=== PATIENT | female | born 1950 | race Caucasian/White ===

== ENCOUNTER 2019-12-01 13:47 | Outpatient (REF) | payer MEDICARE, SELFPAY ==
[2019-12-01 17:18] LABS: TSH reflex Free T4 0.54 mIU/mL (0.32-4.0)
== END 2019-12-01 13:48 | disposition home or self-care (01) ==
LOC: HO.HMGCLDS 13:47
PROVIDERS: PCP Internal Medicine; Visit Provider Internal Medicine
DX: R63.4 Abnormal weight loss (principal); Z00.00 Encounter for general adult medical examination without abnormal findings
CPT/HCPCS: 84443

== ENCOUNTER 2020-01-11 11:56 | Emergency (ER) | payer MEDICARE, SELFPAY ==
[2020-01-11 12:03] VITALS: BP 145/78; PULSE 89; RESP 18; TEMP 36.7; O2SAT 97; BMI 36.3
--- NOTE | 2020-01-11 12:42 | ED_ITS ---
HPI - Weakness General Chief complaint: Weakness Stated complaint: n/v/d weakness Time Seen by Provider: 01/11/20 12:42 Source: patient Mode of arrival: ambulatory Limitations: no limitations History of Present Illness HPI Narrative: this is a 69-year-old female who reports aside from slightly elevated cholesterol level she has no significant past medical history and takes daily aspirin and statin for her cholesterol she presents with complaint of a generalized feeling of weakness, a decrease appetite, chills and body ache for the past 4-5 days. Additionally she reports to me that day before Thanksgiving her room a and herself for tested for COVID-19 her room a test positive and she tested negative as her roommate has been doing fine but she herself developed fevers, chills and rhinorrhea on Wednesday and lasted a day or so the fever improved however she has overall been feeling run down. States she has no pain but has just overall generalized weakness secondary to decreased intake. She denies any shortness of breath. No cough. MD Complaint: generalized weakness Onset (ago): day(s) Location: generalized Migration: none Severity: moderate Context: recent illness Associated symptoms: fever/chills and loss of appetite Related Data Home Medications Medication Instructions Recorded Confirmed aspirin 81 mg tablet,delayed 81 mg PO DAILY 12/01/19 12/01/19 release rosuvastatin 10 mg tablet 10 mg PO DAILY 12/01/19 12/01/19 Previous Rx's Medication Instructions Recorded doxycycline monohydrate 100 mg PO BID 7 Days #14 cap 01/11/20 ondansetron HCl [Zofran] 4 mg PO Q8H PRN #10 tab 01/11/20 Allergies Allergy/AdvReac Type Severity Reaction Status Date / Time cholecalciferol (vitamin D3) AdvReac Unknown body aches Verified 05/26/19 00:00 [Vitamin D3] Review of Systems Review of Systems: Constitutional: No Weight loss, No Fever, + Chills, No Night Sweats, + Fatigue ENT/Mouth: No Hearing loss, No Ear Pain, + Nasal Congestion, No Sinus Pain, No Hoarseness, No sore throat, + Rhinorrhea, No Swallowing Difficulty Eyes: No Eye Pain, No Swelling, No Redness, No Foreign Body, No Discharge, No Vision Changes Cardiovascular: No Chest Pain, No SOB, No Dyspnea on Exertion, No Orthopnea, No Edema, No Palpitations Respiratory: No Cough, No Sputum, No Wheezing, No Smoke Exposure, No Dyspnea Gastrointestinal: + Nausea, No Vomiting, No Diarrhea, No Constipation, No abdominal Pain, No Hematochezia, No Melena Genitourinary: No Dysuria, No Urinary Frequency, No Hematuria, No Urinary Incontinence, No Urgency, No Flank Pain, No Urinary Flow Changes, No Hesitancy Musculoskeletal: No joint pain, No Myalgias, No Joint Swelling Skin: No Skin Lesions, No rash Neuro: No Numbness, No Paresthesias, No Loss of Consciousness, No Dizziness, No Headache Psych: No Anxiety/Panic, No Depression, No SI/HI/AH/VH, No Social Issues Heme/Lymph: No Bruising, No Bleeding,No Lymphadenopathy Endocrine: No Polyuria, No Polydipsia, No Temperature Intolerance Yes all other systems are reviewed and are negative Neurologic: Reports Abnormal speech present [facility] Past Medical History Medical History (Updated 01/11/20 @ 19:02 by Dewey Restrepo NP) Annual physical exam Hyperlipidemia Mammogram normal Weight loss Surgical History (Updated 12/01/19 @ 09:12 by Zandra Charles CMA) H/O colonoscopy No pertinent past surgical history Family History Family History (Updated 11/29/19 @ 09:33 by Yaa Tariq Stacey, JASSON) Father Unknown family medical history Social History Social History (Updated 12/01/19 @ 13:08 by Zandra Charles CMA) Alcohol intake: never Smoking Status: Never smoker Smoked in Last 30 Days: No Use of substances other than those prescribed or required for medical reasons: No Advance Directives: No Advance Directives Information Provided: No Physical Exam Vital Signs: Vital Signs: Last Vital Signs Temp 97.6 F 01/11/20 16:00 Pulse 89 01/11/20 16:00 Resp 18 01/11/20 16:00 BP 162/76 H 01/11/20 16:00 Pulse Ox 97 01/11/20 16:00 Body Mass Index 36.3 reviewed Const: Other: Found patient lying supine in bed attached to monitor worker resting comfortably. Dry appearing with dry lips General: cooperative, tired appearing and well groomed; No acute distress Orientation/consciousness: patient oriented x3 HENMT: Head: Yes normal to inspection Ears: hearing grossly normal bilaterally Eyes: General: appearance normal, both eyes and all related structures Visual Lynn: normal visual lynn by confrontation Neck: Neck: Yes normal visual inspection, No positive Brudzinski's sign, No positive Kernig's sign and No tender Thyroid: Thyroid normal Chest: Chest palpation & inspection: normal inspection of the chest Resp: Effort & Inspection: normal respiratory effort Auscultation: clear to auscultation bilaterally Cardio: Jugular venous distension: no JVD Rate: regular rate Heart sounds: S1 normal heart sound present and S2 normal heart sound present GI: Inspection: Yes normal to inspection Palpation (GI): Soft to palpation, not firm, nontender and no guarding Percussion: Yes normal to percussion Auscultation: normal bowel sounds : General: Yes no CVA tenderness Back/Spine/Pelvis: Back: no CVA tenderness Skin: Other: slight skin tenting. General skin exam: no rashes or lesions noted Neuro: General: patient oriented x3 Cranial nerves: Yes CN's II-XII intact bilaterally Speech: Abnormal speech present Gait exam (Neuro): Normal gait present Motor exam (neuro): 5/5 motor strength present throughout Sensory Exam: Normal double simultaneous stimulation for sensation Extrem: General: Yes normal to inspection NIH Stroke Scale Internal: Initial- Upon Arrival Level of Consciousness: Alert Level of Consciousness Questions: Answers both questions correctly Level of Consciousness Commands: Performs both tasks correctly Visual: No visual loss Facial Palsy: Normal Motor Arm (Right): No drift Motor Arm (Left): No drift Motor Leg (Right): No drift Motor Leg (Left): No drift Limb Ataxia: Absent Sensory: Normal Best Language: No aphasia Dysarthia: Normal Extinction and Inattention: No abnormality Course Course Course Narrative: 1417 Labs with CBC without leukocytosis, chemistries show stable electrolytes, renal function intact. Lactic acid negative. Slight elevation in AST/ALT and alk-phos without previous comparison available. Troponin 10.0. chest x-ray bilateral patchy all regions of disease And she is COVID-19 positive likely viral source given her exposure. Reevaluation(s) Reevaluation #1: lab shows no leukocytosis. Chemistry shows slightly elevated AST / ALT otherwise renal function stable. Urine noninfected. Slightly elevated D-dimer CTA of the chest negative for PE as well as abdominal CT done rule out acute infectious versus metastatic disease was also negative. She has been stable here. Afebrile, non tachy or hypoxic. Out of bed ambulatory steady gait. COVID-19 positive will discharge home with clear returns follow-up instructions. She feels comfortable plan will do a bedolla was it with primary care doctor via [employer]. MDM - Weakness MDM Narrative Medical decision making narrative: In review 69-year-old female with history of hypercholesteremia presenting with constellation of symptoms including generalized weakness, rhinorrhea, body aches/myalgias with fever 4 days ago and decreased p.o. intake with exposure to her roommate who tested positive for COVID. On exam she is dry appearing but no signs or symptom of systemic infections on vitals. No complaint of pain. she is not hypoxic or in any distress. We will go ahead and treat her with gradual fluids check labs including COVID certification labs and respiratory panel, chest x-ray. Given the weight loss I did discuss with her getting CT scan of the abdomen rule out acute pathology. Medical Records Attestation: I reviewed the patient's medical records. Medical records narrative: Medical record reviewed she had a visit on 12/01/[address] with her primary care [address]. Stanton this was for a annual physical she did report some 21 lb weight loss over the past several months plan was to increase her caloric/protein intake and to follow up she had labs ordered at that time including thyroid. Lab Data Attestation: I reviewed the patient's lab results. Result diagrams: 01/11/20 13:11 01/11/20 13:11 Labs: Lab Results 01/11/20 01/11/20 01/11/20 Range/Units 13:10 13:11 13:11 WBC 5.6 (4.8-10.8) X10*3/uL RBC 4.76 (4.20-5.50) X10*6/uL Hgb 14.8 (12.0-16.0) g/dl Hct 43.2 (37-47) % MCV 90.8 (80-98) fL MCH 31.1 (27.0-33.0) pg MCHC 34.3 (31.0-35.0) g/dl RDW 12.3 (11.0-16.0) % Plt Count 162 (160-400) X10*3/uL MPV 10.9 (9.4-12.3) fL Immature Gran % (Auto) 0.4 (0.0-0.4) % Neut % (Auto) 82.2 H (45-73) % Lymph % (Auto) 9.5 L (20-40) % [place] % (Auto) 7.7 (2-11) % Eos % (Auto) 0.0 (0-4) % Baso % (Auto) 0.2 (0-2) % Lymph # (Auto) 0.5 L (1.2-4.9) X10*3/uL [place] # (Auto) 0.4 (0.1-1.2) X10*3/uL Eos # (Auto) 0.0 (0.0-0.4) X10*3/uL Baso # (Auto) 0.0 (0.0-0.2) X10*3/uL Abs Immat Gran (auto) 0.02 (0.00-0.03) X10*3/uL Absolute Neuts (auto) 4.6 (2.0-8.3) X10*3/uL Absolute Nucleated RBC 0.000 (0.0-0.012) X10*3/uL Nucleated RBC % (auto) 0.0 (0.0-0.2) /100WBC PT 13.6 H (10.8-13.0) SEC INR 1.1 (0.9-1.1) APTT 31.3 (24.1-38.0) SEC D-Dimer 432 NG/ML Sodium (135-145) mmol/L Potassium (3.3-5.1) mmol/l Chloride (96-108) mmol/L Carbon Dioxide (22-29) mmol/L Anion Gap (12-20) BUN (9-16) mg/dL Creatinine (0.5-1.4) mg/dL Estim Creat Clear Calc Estimated GFR Random Glucose (60-115) mg/dL Lactic Acid 1.3 (0.5-2.0) mmol/L Calcium (8.4-10.2) mg/dL Magnesium (1.6-2.6) mg/dL Total Bilirubin (0.0-1.0) mg/dL AST (5-31) U/L ALT (0-31) U/L Alkaline Phosphatase (39-117) U/L Troponin I High Sens (<3.5-17.0) ng/L Total Protein (6.5-8.0) g/dL Albumin (3.5-5.0) g/dL Urine Color Urine Appearance Urine pH (5.0-8.0) Ur Specific [place] (1.005-1.025) Urine Protein (NEG-TRACE) MG/DL Urine Glucose (UA) (NEG) MG/DL Urine Ketones (NEG) MG/DL Urine Blood (NEG) Urine Nitrite (NEG) Ur Leukocyte Esterase (NEG) Urine RBC (0) /HPF Urine WBC (0-4) /HPF Ur Squamous Epith Cells /LPF Urine Bacteria /LPF Urine Mucus /LPF Coronavirus (PCR) (Negative) Influenza Type A (PCR) (Negative) Influenza Type B (PCR) (Negative) RSV RNA Qual (PCR) (Negative) 01/11/20 01/11/20 01/11/20 Range/Units 13:11 13:11 13:24 WBC (4.8-10.8) X10*3/uL RBC (4.20-5.50) X10*6/uL Hgb (12.0-16.0) g/dl Hct (37-47) % MCV (80-98) fL MCH (27.0-33.0) pg MCHC (31.0-35.0) g/dl RDW (11.0-16.0) % Plt Count (160-400) X10*3/uL MPV (9.4-12.3) fL Immature Gran % (Auto) (0.0-0.4) % Neut % (Auto) (45-73) % Lymph % (Auto) (20-40) % [place] % (Auto) (2-11) % Eos % (Auto) (0-4) % Baso % (Auto) (0-2) % Lymph # (Auto) (1.2-4.9) X10*3/uL [place] # (Auto) (0.1-1.2) X10*3/uL Eos # (Auto) (0.0-0.4) X10*3/uL Baso # (Auto) (0.0-0.2) X10*3/uL Abs Immat Gran (auto) (0.00-0.03) X10*3/uL Absolute Neuts (auto) (2.0-8.3) X10*3/uL Absolute Nucleated RBC (0.0-0.012) X10*3/uL Nucleated RBC % (auto) (0.0-0.2) /100WBC PT (10.8-13.0) SEC INR (0.9-1.1) APTT (24.1-38.0) SEC D-Dimer NG/ML Sodium 137 (135-145) mmol/L Potassium 4.6 (3.3-5.1) mmol/l Chloride 100 (96-108) mmol/L Carbon Dioxide 27 (22-29) mmol/L Anion Gap 15 (12-20) BUN 18 H (9-16) mg/dL Creatinine 0.75 (0.5-1.4) mg/dL Estim Creat Clear Calc 77.4 Estimated GFR > 60 Random Glucose 93 (60-115) mg/dL Lactic Acid (0.5-2.0) mmol/L Calcium 8.0 L (8.4-10.2) mg/dL Magnesium 2.4 (1.6-2.6) mg/dL Total Bilirubin 0.8 (0.0-1.0) mg/dL AST 44 H (5-31) U/L ALT 32 H (0-31) U/L Alkaline Phosphatase 126 H (39-117) U/L Troponin I High Sens 10.1 (<3.5-17.0) ng/L Total Protein 6.5 (6.5-8.0) g/dL Albumin 3.2 L (3.5-5.0) g/dL Urine Color Urine Appearance Urine pH (5.0-8.0) Ur Specific [place] (1.005-1.025) Urine Protein (NEG-TRACE) MG/DL Urine Glucose (UA) (NEG) MG/DL Urine Ketones (NEG) MG/DL Urine Blood (NEG) Urine Nitrite (NEG) Ur Leukocyte Esterase (NEG) Urine RBC (0) /HPF Urine WBC (0-4) /HPF Ur Squamous Epith Cells /LPF Urine Bacteria /LPF Urine Mucus /LPF Coronavirus (PCR) POSITIVE A (Negative) Influenza Type A (PCR) NEGATIVE (Negative) Influenza Type B (PCR) NEGATIVE (Negative) RSV RNA Qual (PCR) NEGATIVE (Negative) 01/11/20 01/11/20 Range/Units 16:45 16:45 WBC (4.8-10.8) X10*3/uL RBC (4.20-5.50) X10*6/uL Hgb (12.0-16.0) g/dl Hct (37-47) % MCV (80-98) fL MCH (27.0-33.0) pg MCHC (31.0-35.0) g/dl RDW (11.0-16.0) % Plt Count (160-400) X10*3/uL MPV (9.4-12.3) fL Immature Gran % (Auto) (0.0-0.4) % Neut % (Auto) (45-73) % Lymph % (Auto) (20-40) % [place] % (Auto) (2-11) % Eos % (Auto) (0-4) % Baso % (Auto) (0-2) % Lymph # (Auto) (1.2-4.9) X10*3/uL [place] # (Auto) (0.1-1.2) X10*3/uL Eos # (Auto) (0.0-0.4) X10*3/uL Baso # (Auto) (0.0-0.2) X10*3/uL Abs Immat Gran (auto) (0.00-0.03) X10*3/uL Absolute Neuts (auto) (2.0-8.3) X10*3/uL Absolute Nucleated RBC (0.0-0.012) X10*3/uL Nucleated RBC % (auto) (0.0-0.2) /100WBC PT (10.8-13.0) SEC INR (0.9-1.1) APTT (24.1-38.0) SEC D-Dimer NG/ML Sodium (135-145) mmol/L Potassium (3.3-5.1) mmol/l Chloride (96-108) mmol/L Carbon Dioxide (22-29) mmol/L Anion Gap (12-20) BUN (9-16) mg/dL Creatinine (0.5-1.4) mg/dL Estim Creat Clear Calc Estimated GFR Random Glucose (60-115) mg/dL Lactic Acid (0.5-2.0) mmol/L Calcium (8.4-10.2) mg/dL Magnesium (1.6-2.6) mg/dL Total Bilirubin (0.0-1.0) mg/dL AST (5-31) U/L ALT (0-31) U/L Alkaline Phosphatase (39-117) U/L Troponin I High Sens 12.9 (<3.5-17.0) ng/L Total Protein (6.5-8.0) g/dL Albumin (3.5-5.0) g/dL Urine Color YELLOW Urine Appearance CLEAR Urine pH 5.5 (5.0-8.0) Ur Specific [place] 1.025 (1.005-1.025) Urine Protein TRACE (NEG-TRACE) MG/DL Urine Glucose (UA) NEG (NEG) MG/DL Urine Ketones >=80 (NEG) MG/DL Urine Blood NEG (NEG) Urine Nitrite NEG (NEG) Ur Leukocyte Esterase 1+ H (NEG) Urine RBC 0 (0) /HPF Urine WBC 1-4 (0-4) /HPF Ur Squamous Epith Cells NONE /LPF Urine Bacteria TRACE /LPF Urine Mucus TRACE /LPF Coronavirus (PCR) (Negative) Influenza Type A (PCR) (Negative) Influenza Type B (PCR) (Negative) RSV RNA Qual (PCR) (Negative) ABG Data Attestation: I personally reviewed and interpreted this ABG as follows: Imaging Data CTA/ PE/abdominal CT with IV contrast: Radiologist's impression: Danitza Mcclain 69 F [address] [place] [address] [address] Scan Report Signed Patient: Danitza McclainMR#: [id number] : 9Acct:[id number] Age/Sex: 69 / FADM Date: 01/11/20 Loc: .ED Attending Dr: Ordering Physician: Dewey Restrepo NP Date of Service: 01/11/20 Procedure(s): CT abdomen pelvis w con Accession Number(s): [id number] cc: Dewey Restrepo NP~ EXAMINATION: CT ANGIOGRAM OF THE CHEST WITH AND WITHOUT CONTRAST (CT PULMONARY ANGIOGRAM FOR PE) CT ABDOMEN AND PELVIS WITH CONTRAST CLINICAL INFORMATION: Weakness. Elevated d-dimer. Weight loss. COMPARISON: Chest radiograph from today TECHNIQUE: Prior to contrast administration, noncontrast localization images were obtained. Subsequently, multidetector volumetric imaging was performed from the thoracic inlet to below the diaphragms following the administration of 85 mL Omnipaque 350 intravenous contrast. This was followed by multidetector acquisition of the abdomen and pelvis. No contrast reaction reported Sagittal, coronal, and MIP oblique sagittal reformatted images were obtained on the CT workstation, uploaded to PACS, and reviewed. This CT examination was performed using dose optimization techniques as appropriate, variously including the following: *Automated exposure control *Adjustment of mA and/or kV according to patient size (this includes techniques or standardized protocols for targeted exams where dose is matched to indication/reason for exam; i.e. extremities or head) *Use of iterative reconstruction technique Total exam dose-length product 557 mGy-cm FINDINGS: QUALITY OF STUDY/CONTRAST BOLUS: Satisfactory. PULMONARY ARTERIES: No central or segmental pulmonary emboli. THORACIC AORTA: No aneurysm or dissection. LUNG: The central airways are patent. There are patchy groundglass opacities in both lungs. In some areas there are bandlike appearance. No dense consolidation. Biapical pleural thickening. No gross pulmonary nodule. PLEURA: No pleural effusion or pneumothorax. MEDIASTINUM: Borderline prominent heart size. No pericardial effusion. Prominent right peribronchial lymph node measuring 1 cm, series 7 image 32. Mildly prominent mediastinal lymph nodes without pathologic enlargement. No evidence of septal bowing or right heart strain. CHEST WALL/AXILLA: No axillary or internal mammary lymphadenopathy. LIVER, GALLBLADDER, AND BILIARY TREE: The liver is normal in size, shape, and attenuation. No focal hepatic lesion or biliary ductal dilatation is present. The gallbladder is unremarkable with no evidence of radiopaque gallstones, gallbladder wall thickening, or obvious pericholecystic inflammatory changes. PANCREAS: Unremarkable. SPLEEN: Unremarkable. ADRENAL GLANDS: Unremarkable. KIDNEYS AND URETERS: The kidneys are normal in size, shape, and attenuation. No hydronephrosis, hydroureter, or calculi seen. No perinephric stranding. BLADDER: Unremarkable. GASTROINTESTINAL TRACT: The stomach is unremarkable. Normal caliber small bowel. There is no obstruction. Normal appendix. No colonic wall thickening or acute inflammatory changes. There is colonic diverticulosis without diverticulitis. No free air. No free fluid. ABDOMINAL WALL: No significant hernia is appreciated. LYMPH NODES: Normal. VASCULAR: Unremarkable. PELVIC VISCERA: Uterus is unremarkable. No left adnexal mass. There is a 2 cm right adnexal cyst. OSSEOUS STRUCTURES: No acute or suspicious osseous abnormality. Degenerative changes of the spine. Disc space narrowing of L5-S1 with vacuum disc phenomenon. Diffuse facet arthropathy. Scoliotic curvature of the spine. CT/CT abdomen pelvis w con IMPRESSION: 1. No pulmonary embolism. 2. Patchy groundglass opacities are seen in both lungs. Viral pneumonia must be considered. 3. Mildly prominent mediastinal and right peribronchial lymph nodes, which may be reactive. 4. No lymphadenopathy within the abdomen or pelvis. No mass identified. 5. There is a 2 cm right adnexal cyst. VTE: negative Dictated By:MARQUES HOFFMAN MD Signed By:<Electronically signed by MARQUES HOFFMAN MD in OV>01/11/20 1654 DD/ 1512 TD/TT: Pin Worker: MARIA DE JESUS ECG Data Interpretation: normal sinus rhythm Rate 90 P.r. interval within normal limits no ST segment changes When compared to 12/06/2019 no change Discharge Plan Discharge Clinical Impression: COVID-19, Pneumonia Patient Disposition: Home, Self-Care Instructions: COVID-19 (Coronavirus Disease 2019) (ED) Additional Instructions: push fluids Take medication prescribed Return to emergency room right away if any concerns or worsening symptoms Otherwise schedule a follow-up via tele health with her primary care doctor in 3-4 days for well check Thank you Prescriptions: New ondansetron HCl [Zofran] 4 mg tablet 4 mg PO Q8H PRN (Reason: nausea and vomiting) Qty: 10 RF: 0 doxycycline monohydrate 100 mg capsule 100 mg PO BID 7 Days Qty: 14 RF: 0 No Action rosuvastatin 10 mg tablet 10 mg PO DAILY RF: 0 aspirin 81 mg tablet,delayed release (DR/EC) 81 mg PO DAILY RF: 0 Referrals: Lucia Stanton MD [Primary Care Provider] - 1 week ( Phone visit) Interventions: ED Discharge Assessment Last Done: 01/11/20 19:21
--- NOTE | 2020-01-11 12:43 | ECG_ITS ---
Test Reason : WEAKNESS Blood Pressure : / mmHG Vent. Rate : 090 BPM Atrial Rate : 090 BPM P-R Int : 162 ms QRS Dur : 092 ms QT Int : 362 ms P-R-T Axes : 050 -08 014 degrees QTc Int : 442 ms Normal sinus rhythm Minimal voltage criteria for LVH, may be normal variant Borderline ECG No previous ECGs available Referred By: Dewey Restrepo Electronically Signed By:SUNITA WALL MD
--- NOTE | 2020-01-11 12:43 | XR_ITS ---
EXAMINATION: XR CHEST CLINICAL INFORMATION: Weakness COMPARISON: None TECHNIQUE: AP portable view of the chest was obtained. FINDINGS: There are some scattered regions of patchy disease present in the mid and lower lungs bilaterally. No pneumothorax or significant pleural effusion. Heart normal size. No evidence of pulmonary edema. XR/XR chest 1V IMPRESSION: Bilateral patchy regions of disease.
[2020-01-11 13:22] LABS: Basophils Percent Auto 0.2 % (0-2); Hematocrit 43.2 % (37-47); Hemoglobin 14.8 g/dl (12.0-16.0); Imm Gran Abs Auto 0.02 X10*3/uL (0.00-0.03); Imm Gran Pct Auto 0.4 % (0.0-0.4); Lymphocytes Absolute Auto 0.5 X10*3/uL (1.2-4.9); Lymphocytes Percent Auto 9.5 % (20-40); Mean Corpuscular HGB Conc 34.3 g/dl (31.0-35.0); Mean Corpuscular Hemoglobin 31.1 pg (27.0-33.0); Mean Corpuscular Volume 90.8 fL (80-98); Mean Platelet Volume 10.9 fL (9.4-12.3); Monocytes Absolute Auto 0.4 X10*3/uL (0.1-1.2); Monocytes Percent Auto 7.7 % (2-11); Neutrophils Absolute Auto 4.6 X10*3/uL (2.0-8.3); Neutrophils Percent Auto 82.2 % (45-73); Platelet Count 162 X10*3/uL (160-400); Red Blood Count 4.76 X10*6/uL (4.20-5.50); Red Cell Distribution Width 12.3 % (11.0-16.0); SCAN SMEAR FLAG 1; White Blood Count 5.6 X10*3/uL (4.8-10.8)
[2020-01-11 13:23] LABS: MANUAL DIFF FLAG NO
[2020-01-11] MEDS: 0.9 % Sodium Chloride 1,000 ML 999 ML IV (13:23)
[2020-01-11 13:27] LABS: INTERNATIONAL NORM RATIO 1.1 (0.9-1.1); Prothrombin Time 13.6 SEC (10.8-13.0)
[2020-01-11 13:29] LABS: Partial Thromboplastin Time 31.3 SEC (24.1-38.0)
[2020-01-11 13:53] LABS: Lactic Acid 1.3 mmol/L (0.5-2.0)
[2020-01-11 14:01] LABS: Alanine Aminotransferase 32 U/L (0-31); Albumin Level 3.2 g/dL (3.5-5.0); Alkaline Phosphatase 126 U/L (39-117); Anion Gap 15 (12-20); Aspartate Amino Transferase 44 U/L (5-31); Bilirubin Total 0.8 mg/dL (0.0-1.0); Blood Urea Nitrogen 18 mg/dL (9-16); Carbon Dioxide 27 mmol/L (22-29); Chloride 100 mmol/L (96-108); Creatinine Clr Calc Pharmacy 77.4; Estimated Glomerular Filt Rate > 60; Glucose Random 93 mg/dL (60-115); Magnesium 2.4 mg/dL (1.6-2.6); Potassium 4.6 mmol/l (3.3-5.1); Sodium 137 mmol/L (135-145); Total Protein 6.5 g/dL (6.5-8.0); Troponin-I High Sensitivity 10.1 ng/L (<3.5-17.0)
[2020-01-11 14:15] LABS: Influenza A PCR NEGATIVE (Negative); Influenza B PCR NEGATIVE (Negative); Resp Syncy Virus RNA Qual PCR NEGATIVE (Negative); SARS COV2 PCR INHOUSE POSITIVE (Negative)
[2020-01-11 15:02] LABS: D Dimer 432 NG/ML
--- NOTE | 2020-01-11 15:12 | CT_ITS ---
EXAMINATION: CT ANGIOGRAM OF THE CHEST WITH AND WITHOUT CONTRAST (CT PULMONARY ANGIOGRAM FOR PE) CT ABDOMEN AND PELVIS WITH CONTRAST CLINICAL INFORMATION: Weakness. Elevated d-dimer. Weight loss. COMPARISON: Chest radiograph from today TECHNIQUE: Prior to contrast administration, noncontrast localization images were obtained. Subsequently, multidetector volumetric imaging was performed from the thoracic inlet to below the diaphragms following the administration of 85 mL Omnipaque 350 intravenous contrast. This was followed by multidetector acquisition of the abdomen and pelvis. No contrast reaction reported Sagittal, coronal, and MIP oblique sagittal reformatted images were obtained on the CT workstation, uploaded to PACS, and reviewed. This CT examination was performed using dose optimization techniques as appropriate, variously including the following: *Automated exposure control *Adjustment of mA and/or kV according to patient size (this includes techniques or standardized protocols for targeted exams where dose is matched to indication/reason for exam; i.e. extremities or head) *Use of iterative reconstruction technique Total exam dose-length product 557 mGy-cm FINDINGS: QUALITY OF STUDY/CONTRAST BOLUS: Satisfactory. PULMONARY ARTERIES: No central or segmental pulmonary emboli. THORACIC AORTA: No aneurysm or dissection. LUNG: The central airways are patent. There are patchy groundglass opacities in both lungs. In some areas there are bandlike appearance. No dense consolidation. Biapical pleural thickening. No gross pulmonary nodule. PLEURA: No pleural effusion or pneumothorax. MEDIASTINUM: Borderline prominent heart size. No pericardial effusion. Prominent right peribronchial lymph node measuring 1 cm, series 7 image 32. Mildly prominent mediastinal lymph nodes without pathologic enlargement. No evidence of septal bowing or right heart strain. CHEST WALL/AXILLA: No axillary or internal mammary lymphadenopathy. LIVER, GALLBLADDER, AND BILIARY TREE: The liver is normal in size, shape, and attenuation. No focal hepatic lesion or biliary ductal dilatation is present. The gallbladder is unremarkable with no evidence of radiopaque gallstones, gallbladder wall thickening, or obvious pericholecystic inflammatory changes. PANCREAS: Unremarkable. SPLEEN: Unremarkable. ADRENAL GLANDS: Unremarkable. KIDNEYS AND URETERS: The kidneys are normal in size, shape, and attenuation. No hydronephrosis, hydroureter, or calculi seen. No perinephric stranding. BLADDER: Unremarkable. GASTROINTESTINAL TRACT: The stomach is unremarkable. Normal caliber small bowel. There is no obstruction. Normal appendix. No colonic wall thickening or acute inflammatory changes. There is colonic diverticulosis without diverticulitis. No free air. No free fluid. ABDOMINAL WALL: No significant hernia is appreciated. LYMPH NODES: Normal. VASCULAR: Unremarkable. PELVIC VISCERA: Uterus is unremarkable. No left adnexal mass. There is a 2 cm right adnexal cyst. OSSEOUS STRUCTURES: No acute or suspicious osseous abnormality. Degenerative changes of the spine. Disc space narrowing of L5-S1 with vacuum disc phenomenon. Diffuse facet arthropathy. Scoliotic curvature of the spine. CT/CT angio chest PE protocol IMPRESSION: 1. No pulmonary embolism. 2. Patchy groundglass opacities are seen in both lungs. Viral pneumonia must be considered. 3. Mildly prominent mediastinal and right peribronchial lymph nodes, which may be reactive. 4. No lymphadenopathy within the abdomen or pelvis. No mass identified. 5. There is a 2 cm right adnexal cyst. VTE: negative
--- NOTE | 2020-01-11 15:27 | PC.NURSE ---
pt fluid finished, asking for some fluids because mouth is dry
[2020-01-11 16:00] VITALS: BP 162/76; PULSE 89; RESP 18; TEMP 36.4; O2SAT 97
[2020-01-11] MEDS: iohexoL 350 MG/ML 100 ML INFUS..BTL IV (16:36)
[2020-01-11 16:56] LABS: Glucose Urine UA NEG (NEG); Leukocyte Esterase Urine 1+ (NEG); Nitrite Urine NEG (NEG); PH 5.5 (5.0-8.0); Specific Gravity - Urine 1.025 (1.005-1.025); Urine Blood NEG (NEG); Urine Ketones >=80 MG/DL (NEG); Urine Protein TRACE MG/DL (NEG-TRACE)
[2020-01-11 17:01] LABS: Appearance Urine CLEAR; Color Urine YELLOW
[2020-01-11 17:12] LABS: RBC Urine 0 /HPF (0)
[2020-01-11 17:13] LABS: Bacteria Urine TRACE /LPF; Mucus Urine TRACE /LPF
[2020-01-11 18:34] LABS: Troponin-I High Sensitivity 12.9 ng/L (<3.5-17.0)
== END 2020-01-11 20:54 | disposition home or self-care (01) ==
PROVIDERS: Nurse Practitioner Primary Care; Emergency Provider Emergency Medicine; PCP Internal Medicine
DX: U07.1 COVID-19 (principal); J18.9 Pneumonia, unspecified organism; E78.5 Hyperlipidemia, unspecified; Z79.899 Other long term (current) drug therapy
CPT/HCPCS: 0241U; 36415; 71045; 71275; 74177; 80053; 81001; 83605; 83735; 84484; 85025; 85379; 85610; 85730; 87040; 87086; 93005; 96360; 99284; Q9967

== ENCOUNTER 2022-06-03 14:45 | Outpatient (REF) | payer MEDICARE, SELFPAY ==
--- NOTE | ~2022-06-03 | XR_ITS ---
EXAMINATION: XR HIP, RIGHT CLINICAL INFORMATION: Right hip pain COMPARISON: None available. TECHNIQUE: Two views of the right hip. FINDINGS: Bones and soft tissues are normal. No fracture. Alignment is anatomic. Hip joint space is maintained. XR/XR hip RT min 2V IMPRESSION: Unremarkable right hip.
== END 2022-06-03 14:46 | disposition home or self-care (01) ==
LOC: HO.HMGCX 14:45
PROVIDERS: PCP Internal Medicine; Visit Provider Internal Medicine
DX: M25.551 Pain in right hip (principal); R10.31 Right lower quadrant pain
CPT/HCPCS: 73502

== ENCOUNTER 2022-06-24 15:52 | Outpatient (REF) | payer MEDICARE, SELFPAY ==
--- NOTE | ~2022-06-24 | US_ITS ---
EXAMINATION: US PELVIS CLINICAL INFORMATION: Ovarian cyst. COMPARISON: 72-year-old, postmenopausal patient. CT dated 01/11/2020 TECHNIQUE: Ultrasound of the pelvis is performed using both transabdominal and transvaginal transducers along with Doppler. Transvaginal imaging is performed due to inadequate visualization transabdominally. FINDINGS: Uterus: The uterus is anteverted and measures 5.0 x 1.7 x 2.9 cm. The double wall endometrial thickness is 0.4 mm. The uterus is smooth in contour and has normal myometrial echogenicity. No visible fibroid. Adnexa: Both ovaries are visualized. There is normal color flow to the adnexa. There is no ovarian torsion. There is no pelvic ascites or fluid collection. Right ovary measures 3.1 x 2.5 x 2.2 cm. There is a 2.6 x 1.6 x 1.3 cm intraovarian cyst with low level internal echoes, although this is only seen on transabdominal views, limiting evaluation. Left ovary measures 1.6 x 1.1 x 1.4 cm. US/US pelvic and transvaginal IMPRESSION: Right intraovarian 2.6 cm cyst with low level internal echoes, although this is only seen on transabdominal views, limiting evaluation. Recommend follow-up in 6-12 weeks to assess for resolution.
== END 2022-06-24 15:53 | disposition home or self-care (01) ==
LOC: HO.US 15:52
PROVIDERS: PCP Internal Medicine; Visit Provider Internal Medicine
DX: N83.201 Unspecified ovarian cyst, right side (principal)
CPT/HCPCS: 76830; 76856

== ENCOUNTER 2022-07-31 13:52 | Outpatient (REF) | payer MEDICARE, SELFPAY ==
--- NOTE | ~2022-07-31 | US_ITS ---
EXAMINATION: ULTRASOUND OF THE PELVIS CLINICAL INFORMATION: Ovarian cyst. COMPARISON: 06/24/2022. TECHNIQUE: Transabdominal pelvic ultrasound. This patient refused endovaginal imaging. FINDINGS: The uterus is normal in size with incidental calcifications likely dystrophic, measuring 4.6 x 2.1 x 3.2 cm longitudinally, anteroposteriorly and transversely. The endometrial stripe thickness is normal, measuring 0.4 cm in thickness. No focal myometrial mass is seen. Right ovary remains asymmetrically prominent 15 mL in volume secondary to a 2.9 cm unilocular cyst. No complex features seen grossly. Left ovary normal at 2 mL in volume. No adnexal mass or free fluid collection seen. US/US pelvic limited IMPRESSION: No suspicious findings. Unilocular right ovarian cyst without complex features. This is unchanged.
--- NOTE | ~2022-07-31 | MM_ITS ---
EXAMINATION: BONE DENSITOMETRY CLINICAL INDICATION: Menopause. COMPARISON: This is the patient's baseline examination. TECHNIQUE: Using a [employer] DXA System (software version: 13.1) manufactured by [employer], dual-energy x-ray absorptiometry was performed of the lumbar spine and left hip. The images are of good technical quality. Summary results are attached. FINDINGS: AP SPINE L1-L4: BMD 1.024 g/cm2, Z-score 0.7, T-score -1.3, osteopenia. LEFT FEMUR, NECK: BMD 0.668 g/cm2, Z-score -0.6, T-score -2.7, osteoporosis. LEFT FEMUR, TOTAL: BMD 0.662 g/cm2, Z-score -0.9, T-score -2.7, osteoporosis. IDENTIFIED RISK FACTORS: Menopause. HISTORY OF FRACTURE: None listed. MEDICATIONS: None listed. MM/XR DEXA axial skeleton IMPRESSION: 1. DIAGNOSIS: Osteoporosis based on the lowest T-score value of -2.7 in the femur neck and total femur applying World Health Organization criteria. 2. 10-YEAR FRACTURE RISK PREDICTION, FRAX: According to the guidelines, FRAX calculation should only be performed on patients in the osteopenia bone density category. Therefore, FRAX was not performed on this patient. 3. Treatment Recommendations: NOF guidelines recommend consideration for treatment in postmenopausal women and men age 50 and older presenting with the following: -A hip or vertebral (clinical or morphometric) fracture. -T-score less than or equal to -2.5 at the femoral neck or spine after appropriate evaluation to exclude secondary causes. -Low bone mass at the hip or spine and a 10-year fracture probability by FRAX of greater than or equal to 3% for hip fracture or greater than or equal to 20% for major osteoporotic fracture based on the [place] adapted WHO algorithm. 4. Other Recommendations: All treatment decisions require clinical judgment and consideration of individual patient factors, including patient preferences, comorbidities, previous drug use, risk factors not captured in the FRAX model (e.g. frailty, falls, vitamin D deficiency, increased bone turnover, interval significant decline in bone density) and possible under or overestimation of fracture risk by FRAX. Additional medical evaluation for secondary cause of low bone mineral density may be appropriate. FUTURE SCAN RECOMMENDATION: People with diagnosed cases of osteoporosis or at high risk for fracture should have regular bone mineral density tests. For patients eligible for Medicare, routine testing is allowed once every 2 years. The testing frequency can be increased to one year for patients who have rapidly progressing disease, those who are receiving or discontinuing medical therapy to restore bone mass, or have additional risk factors.
== END 2022-07-31 13:53 | disposition home or self-care (01) ==
LOC: HO.MAMMO 13:52
PROVIDERS: PCP Internal Medicine; Visit Provider Internal Medicine
DX: N83.201 Unspecified ovarian cyst, right side (principal); Z13.820 Encounter for screening for osteoporosis; Z78.0 Asymptomatic menopausal state
CPT/HCPCS: 76857; 77080

== ENCOUNTER 2022-08-10 08:02 | Outpatient (REF) | payer MEDICARE, SELFPAY | END 2022-08-10 08:03 | disposition home or self-care (01) | LOC: HO.HMGCLDS 08:02 | PROVIDERS: PCP Internal Medicine; Visit Provider Internal Medicine | DX: Z00.00 Encounter for general adult medical examination without abnormal findings (principal); E78.5 Hyperlipidemia, unspecified | CPT/HCPCS: 36415; 80053; 80061; 82306; 84443; 85025 ==

== ENCOUNTER 2023-04-02 11:48 | Outpatient (AMB) | payer MEDICARE, SELFPAY ==
[2023-04-02 11:50] VITALS: BP 122/60; PULSE 102; TEMP 36.2; O2SAT 99; BMI 22.5
--- NOTE | 2023-04-02 11:50 | AM.OFFWIN_ITS ---
Intake Vital Signs 04/02/23 11:50 Height 5 ft 4 in Weight 131 lb BMI 22.5 BP 122/60 Blood Pressure Location Lt brachial Position Sitting Pulse 102 H Pulse Source Pulse Oximeter Temp 97.2 F Temp Source Temporal Artery Scan Pulse Oximetry (%) 99 Oxygen Delivery Method Room Air Intake Visit Reasons: EST/right knee pain (lobby) Intake Note: pt is here today for rt knee pain started 1 week ago Patient Tobacco Use Status: Never used Tobacco Allergies cholecalciferol (vitamin D3) [Vitamin D3] Adverse Reaction (Unknown, Verified 04/02/23 11:51) body aches Do you need a note to return to daycare/school/sports/work: No HPI HPI Comments History of Present Illness Details 72 y/o female patient with c/o right kne e pain x 1 week. Denies any injury or trauma. She has not tried any OTC medications yet. COUNTS INCLUDE 234 BEDS AT THE [facility] Medical History Annual physical exam Hyperlipidemia Mammogram normal Weight loss Surgical History H/O colonoscopy No pertinent past surgical history Family History Father Unknown family medical history Social History Housing: House Alcohol intake: current Alcohol intake frequency: holidays/special occasions only Patient Tobacco Use Status: Never used Tobacco e-Cigarette/Vaping Use: Never Used Current occupational status: employed Cognitive needs: No Hearing needs: No Vision needs: Yes Review of Systems Const All systems reviewed & are unremarkable except as noted in HPI and below Physical Exam Vital Signs: Last Vital Signs Temp 97.2 F 04/02/23 11:50 Pulse 102 H 04/02/23 11:50 BP 122/60 04/02/23 11:50 Pulse Ox 99 04/02/23 11:50 Oxygen Delivery Method Room Air 04/02/23 11:50 BMI result Body Mass Index 22.5 Const General: comfortable and no acute distress Orientation/consciousness: patient oriented x3 Skin General skin exam: no rashes or lesions noted Neuro General: patient oriented x3, gait normal, no focal motor deficits and CN's II- XI intact bilaterally Extrem Right lower extremity: normal to inspection, full ROM, no joint enlargement and knee Details: tenderness Location: of the patella and normal ROM; no swelling; no edema Left lower extremity: normal to inspection, full ROM, no joint enlargement and knee Details: normal ROM; no tenderness and no swelling; no edema Psych Speech and movement: Normal speech and movement present Affect: normal affect Attitude: cooperative Assessment & Plan Assessment & Plan (1) Osteoarthritis of right knee: Code(s): M17.11 - Unilateral primary osteoarthritis, right knee Qualifiers: Osteoarthritis type: unspecified Qualified Code(s): M17.11 - Unilateral primary osteoarthritis, right knee Plan - Acetaminophen for pain relief - ICE HOT - Knee Brace - F/u with PCP for Ortho and PT referrals. Medications: New acetaminophen 1,000 mg (2 x 500 mg) PO Q6H PRN 30 caps 0RF fever M17.11 - Unilateral primary osteoarthritis, right knee Coding Level of Care Code Est Pt Level 3 (99806) Diagnoses Osteoarthritis of right knee, unspecified osteoarthritis type M17.11 Osteoarthritis type: unspecified Time Spent (min) 15
== END 2023-04-02 14:46 | disposition home or self-care (01) ==
PROVIDERS: PCP Internal Medicine; Visit Provider Nurse Practitioner Family
DX: M17.11 Unilateral primary osteoarthritis, right knee (principal)
CPT/HCPCS: 99213

== ENCOUNTER 2023-09-30 13:54 | Outpatient (AMB) | payer MEDICARE, MEDICAID, SELFPAY ==
[2023-09-30 14:10] VITALS: BP 114/66; PULSE 90; O2SAT 98; BMI 20.9
--- NOTE | 2023-09-30 14:10 | MHC.PC.OV ---
Vital Signs 09/30/23 14:10 Height 5 ft 4 in Weight 122 lb BMI 20.9 BP 114/66 Blood Pressure Location Rt brachial Position Sitting Pulse 90 Pulse Source Pulse Oximeter Pulse Oximetry (%) 98 Oxygen Delivery Method Room Air Intake Visit Reasons: Hospital follow up Intake Note: Pt is here today for a hospital follow up visit. Allergies cholecalciferol (vitamin D3) [Vitamin D3] Adverse Reaction (Unknown, Verified 09/30/23 14:10) body aches Tobacco use date assessed: 09/30/23 Fall risk assessment: 1 Fall in past year Last assessed Fall Risk: 09/30/23 Dental Screening Dental Screen Date: 09/30/23 Did you have a dental visit in the last 12 months?: Yes Did you have a dental problem in the last 6 months where you did not have access to dental care?: No Was dental information given to patient?: Patient has dentist HPI Hospital follow up HPI Details Pt presents for follow-up for hospitalization at [facility] for R hip femoral neck fracture after trip and fall in [facility]. Patient underwent partial hip replacement a month ago and was discharged to in rehab. She was discharged home 2 days ago and has been getting home physical therapy. Patient is ambulating with a walker and denies pain. She has a follow-up visit with orthopedic surgeon. [facility] Medical History (Updated 09/30/23 @ 14:50 by Lucia Stanton MD) Weight loss Annual physical exam Mammogram normal Hyperlipidemia Surgical History (Updated 09/30/23 @ 14:50 by Lucia Stanton MD) History of hip surgery H/O colonoscopy No pertinent past surgical history Family History Father Unknown family medical history Social History Housing: House Alcohol intake: current Alcohol intake frequency: holidays/special occasions only Patient Tobacco Use Status: Never used Tobacco e-Cigarette/Vaping Use: Never Used Current occupational status: employed Cognitive needs: No Hearing needs: No Vision needs: Yes Questionnaire PHQ-9 Over the last 2 weeks, how often have you been bothered by any of the following problems? 1. Little interest or pleasure in doing things: not at all 2. Feeling down, depressed, or hopeless: not at all 3. Trouble falling or staying asleep, or sleeping too much: not at all 4. Feeling tired or having little energy: not at all 5. Poor appetite or overeating: not at all 6. Feeling bad about yourself - or that you are a failure or have let yourself or your family down: not at all 7. Trouble concentrating on things, such as reading the newspaper or watching television: not at all 8. Moving or speaking so slowly that other people could have noticed. Or the opposite - being so fidgety or restless that you have been moving around a lot more than usual: not at all 9. Thoughts that you would be better off or of hurting yourself in some way: not at all Total score: 0 Depression Screening Interpretation: Negative Depression Screening Done: Yes 37912 - PHQ-9 Billing: Yes Source: Developed by Drs. Rudy Arias, Marisol Kay, Gio King and colleagues, with an educational kurt from [employer]. Thrive Questionnaire Date Thrive assessed: 09/30/23 I am a: Patient What is your living situation today?: I have a steady place to live Within the past 12 months, did the food you bought not last and you didn't have the money to get more?: Never true Within the past 12 months, did you worry whether your food would run out before you got money to buy more?: Never true Do you have trouble paying for medicines?: No Do you have trouble getting transportation to medical appointments?: No Do you have trouble paying your heating and electricity bill?: No Do you have trouble taking care of your child, family member or friend?: No Do you have trouble with day-to-day activities such as bathing, preparing meals, shopping, managing finances, etc.?: No Are you currently unemployed and looking for a job?: No Are you interested in more education?: No Please select the resources that you would like help with: None Currently or been in a relationship where the following occur: No concerns reported THRIVE Score: 0 AUDIT C Alcohol Use Questionnaire (AUDIT-C) 1. How often do you have a drink containing alcohol?: 4 or more times a week 2. How many drinks containing alcohol do you have on a typical day when you are drinking?: 1 or 2 3. How often do you have six or more drinks on one occasion?: Never Total Score: 4 ABDOULAYE-7 AMB Questionnaire ABDOULAYE-7 Date ABDOULAYE - 7 assessed: 09/30/23 Feeling nervous, anxious, or on edge: 0 = Not at all Not being able to stop or control worryin = Not at all Worrying too much about different things: 0 = Not at all Trouble relaxin = Not at all Being so restless that it is hard to sit still: 0 = Not at all Becoming easily annoyed or irritable: 0 = Not at all Feeling afraid as if something awful might happen: 0 = Not at all Total ABDOULAYE-7 score (0-4 normal; 5-9 mild; 10-14 moderate; 15-21 severe): 0 Source: Developed by Drs. Rudy Arias, Marisol Kay, Gio King and colleagues, with an educational kurt from [employer]. ABDOULAYE-7 Assessment Billing ABDOULAYE-7 Assessment Tool: ABDOULAYE-7 Assessment 10750 Review of Systems Const All systems reviewed & are unremarkable except as noted in HPI and below Eyes Reports no additional complaints ENT Reports no additional complaints Card Reports no additional complaints Resp Reports no additional complaints GI Reports no additional complaints Reports no additional complaints Physical exam (Primary Care) Vital Signs: Last Vital Signs Pulse 90 09/30/23 14:10 BP 114/66 09/30/23 14:10 Pulse Ox 98 09/30/23 14:10 Oxygen Delivery Method Room Air 09/30/23 14:10 BMI result Body Mass Index 20.9 Tobacco/Smoking Status: Tobacco use Status Tobacco use date assessed 09/30/23 09/30/23 14:11 Patient Tobacco Use Status Never used Tobacco 09/30/23 14:11 e-Cigarette/Vaping Use Never Used 09/30/23 14:10 PHQ-9: PHQ-9 Score PHQ-9: Total score 0 09/30/23 14:31 Depression Screening Interpretation: Negative Thrive Assessment: Date of Thrive Assessment Date Thrive assessed 09/30/23 09/30/23 14:31 Currently or been in a relationship where the following occur: No concerns reported Const General: no acute distress HENMT Face and sinus: Yes normal facial exam Resp Effort & Inspection: normal respiratory effort Auscultation: clear to auscultation bilaterally Cardio Rhythm: regular rhythm Heart sounds: S1 normal heart sound present and S2 normal heart sound present GI Inspection: Yes normal to inspection Palpation (GI): Soft to palpation Assessment and Plan Assessment & Plan (1) Osteoporosis: Comment: 2022 DEXA T score -2.7, intolerant to Fosamax , developed severe knee pain, stopped after 6 weeks 05/2023 Code(s): M81.0 - Age-related osteoporosis without current pathological fracture Plan: Continue well-balanced diet patient can not tolerate vitamin-D supplement and regular weight-bearing exercises (2) History of hip surgery: Comment: Right hip partial hip replacement after a femoral neck fracture 08/2023 at [facility] Code(s): Z98.890 - Other specified postprocedural states Plan: Continue home physical therapy (3) Hyperlipidemia: Comment: Diet-controlled, intolerant to statins Code(s): E78.5 - Hyperlipidemia, unspecified Coding Level of Care Code Est Pt Level 4 (47937) Diagnoses Osteoporosis M81.0 History of hip surgery Z98.890 Hyperlipidemia E78.5 Additional Codes ABDOULAYE-7 Assessment Billing - ABDOULAYE-7 Assessment Tool: ABDOULAYE-7 Assessment 68805 ([id number])
== END 2023-09-30 14:52 | disposition home or self-care (01) ==
PROVIDERS: PCP Internal Medicine; Visit Provider Internal Medicine
DX: M81.0 Age-related osteoporosis without current pathological fracture (principal); Z98.890 Other specified postprocedural states; E78.5 Hyperlipidemia, unspecified
CPT/HCPCS: 99214

== ENCOUNTER 2024-02-15 11:57 | Outpatient (AMB) | payer MEDICARE, MEDICAID, SELFPAY ==
[2024-02-15 12:12] VITALS: BP 122/76; PULSE 51; O2SAT 98; BMI 22.0
--- NOTE | 2024-02-15 12:12 | AM.OFFVISMDC ---
Intake Vital Signs 02/15/24 12:12 Height 5 ft 4 in Weight 128 lb 6 oz BMI 22.0 BP 122/76 Blood Pressure Location Lt brachial Position Sitting Pulse 51 Pulse Source Pulse Oximeter Pulse Oximetry (%) 98 Oxygen Delivery Method Room Air Intake Visit Reasons: V [id number] Allergies cholecalciferol (vitamin D3) [Vitamin D3] Adverse Reaction (Unknown, Verified 02/15/24 12:16) body aches Medication List - Last Reconciled 02/15/24 by Lucia Stanton MD acetaminophen 1,000 mg (2 x 500 mg) PO Q6H PRN Do you need a note to return to daycare/school/sports/work: No HPI V G0439 HPI Details Initiated the conversation about Advanced Directives. Advanced Directives help? patients prepare for current and future decisions about their medical treatment? and place of care. Discussed with patient that it is a process where a patients? current condition and prognosis are reviewed, their wishes for information? regarding their illness are elicited, and likely medical dilemmas are presented? and options discussed. The form can be amended as needed, reviewed yearly and? make changes as needed IPPE/AWV ? year old presents? for her ? Annual? Wellness Visit, initial visit.? Medical / Social History Reviewed? Past Medical History ?Yes? . ? [place]? of Care / Care Team list updated ?Yes . ? Surgical/Hospitalization? History ?Yes . ? Current Medications? (including OTC and supplements) ?Yes . ? Family History ?Yes? . ? Tobacco? Control form ?Yes . ? AUDIT-C (Alcohol use) form? ?Yes . ? Illicit drug use in Social? History ?Yes . ? Current diagnosis of? depression? ?No ? Appropriate PHQ2/PHQ9? completed ?Yes . ? Data entered by ?Medical? Occupational Therapy Assist and reviewed by provider ? Fall Risk ? Fall? History? Have you had any falls with? injury in the past year? ?No . ? Have you had two or more? falls in the past year? ?No . ? Fall Risk Assessment: ?No? falls in the past year . ? HRA filled out by? the patient, reviewed by Provider and scanned. ? IPPE/AWV ? Balance? [place]? ?Yes . ? Tandem? walk ?Yes . ? Walk and? Turn ?Yes . ? Rise from? sit to stand ?Yes . ?Vision? Corrective? lens ?Yes ? Vision? screen ? Up-to-date, has an appointment [] for vision? screening and glaucoma screening ?Hearing? Whisper? test ?pass .? Initiated the conversation about Advanced Directives. Advanced Directives help? patients prepare for current and future decisions about their medical treatment? and place of care. Discussed with patient that it is a process where a patients? current condition and prognosis are reviewed, their wishes for information? regarding their illness are elicited, and likely medical dilemmas are presented? and options discussed. The form can be amended as needed, reviewed yearly and? make changes as needed Written? Plan?Completed. See Patient? Documents. [facility] Medical History (Updated 02/15/24 @ 13:07 by Lucia Stanton MD) Weight loss Annual physical exam Mammogram normal Hyperlipidemia Surgical History (Updated 09/30/23 @ 14:50 by Lucia Stanton MD) History of hip surgery H/O colonoscopy No pertinent past surgical history Family History Father Unknown family medical history Social History Housing: House Alcohol intake: current Alcohol intake frequency: holidays/special occasions only Patient Tobacco Use Status: Never used Tobacco e-Cigarette/Vaping Use: Never Used Current occupational status: employed Cognitive needs: No Hearing needs: No Vision needs: Yes Questionnaire Mini Mental State Exam (MMSE) Orientation What is the (year) (season) (date) (day) (month)?: year, season, date, day and month Where are we (state) (county) (town or city) (hospital) (floor)?: state, county, town or city, hospital/clinic and floor Registration Name of 3 unrelated objects clearly and slowly, then ask patient to repeat all 3 of them. (1st repeat determines score. Make sure they can repeat all three): object 1, object 2 and object 3 Attention & Calculation (CHOOSE ONE) Spell WORLD backwards (DLROW): 5 letters Recall Ask patient to repeat the 3 items from question #3.: object 1, object 2 and object 3 Language Show patient a wristwatch & ask what it is. Repeat for pencil.: watch and pencil Ask the patient to repeat the phrase 'No ifs, ands, or buts' after you.: correct Ask the patient to 'take a piece of paper with their right hand' 'fold paper in half' 'place paper on floor': take paper in right hand, fold paper in half and place paper on floor Print the sentence 'CLOSE YOUR EYES' on a piece. If patient actually closes eyes then score.: followed written direction Give patient a blank piece of paper & ask to write a sentence. Score if it contains a noun & verb.: sentence contains subject and verb Score Score: 29 Review of Systems Const All systems reviewed & are unremarkable except as noted in HPI and below Eyes Reports no additional complaints ENT Reports no additional complaints Card Reports no additional complaints Resp Reports no additional complaints GI Reports no additional complaints Reports no additional complaints Physical Exam Vital Signs: Last Vital Signs Pulse 51 02/15/24 12:12 BP 122/76 02/15/24 12:12 Pulse Ox 98 02/15/24 12:12 Oxygen Delivery Method Room Air 02/15/24 12:12 BMI result Body Mass Index 22.0 Const General: no acute distress HEENT Head: Yes normal to inspection Ears: hearing grossly normal bilaterally Neck Neck: Yes no lymphadenopathy and Yes supple Resp Effort & Inspection: normal respiratory effort Auscultation: clear to auscultation bilaterally Cardio Rhythm: regular rhythm Heart sounds: S1 normal heart sound present and S2 normal heart sound present GI Inspection: Yes normal to inspection Palpation (GI): Soft to palpation Percussion: Yes normal to percussion Auscultation: normal bowel sounds Extrem General: Yes no clubbing, cyanosis or edema Assessment & Plan Assessment & Plan (1) Vitamin D deficiency: Comment: Patient can not tolerate vitamin-D supplement Code(s): E55.9 - Vitamin D deficiency, unspecified Plan: Well-balanced diet discussed with the patient (2) Hyperlipidemia: Comment: Diet-controlled, intolerant to statins Code(s): E78.5 - Hyperlipidemia, unspecified Plan: Continue low-cholesterol diet return for fasting blood work (3) Annual physical exam: Code(s): Z00.00 - Encounter for general adult medical examination without abnormal findings Plan: Well-balanced diet regular physical activity discussed with the patient Orders: Orders Complete Blood Count Auto Diff Today E55.9 - Vitamin D deficiency, unspecified, E78.5 - Hyperlipidemia, unspecified, Z00.00 - Encounter for general adult medical examination without abnormal findings Comprehensive [place]. Panel Fast Today E55.9 - Vitamin D deficiency, unspecified, E78.5 - Hyperlipidemia, unspecified, Z00.00 - Encounter for general adult medical examination without abnormal findings Lipid Panel Today E55.9 - Vitamin D deficiency, unspecified, E78.5 - Hyperlipidemia, unspecified, Z00.00 - Encounter for general adult medical examination without abnormal findings TSH reflex Free T4 Today E78.5 - Hyperlipidemia, unspecified Coding Level of Care Code Medicare Subsequent (G0439) Diagnoses Vitamin D deficiency E55.9 Hyperlipidemia E78.5 Annual physical exam Z00.00 CPT Codes Advance Care Planning - Time spent: 1-15 minutes, not on file ([id number]) Advance Care Planning Advance Care Planning discussion: Exists, not on file Forms completed: Health Care Proxy Time spent: 1-15 minutes, not on file Did not discuss due to Cultural/Spiritual beliefs: Yes
--- OUTSIDE RECORDS SUMMARY | 2024-02-15 13:51 | XMS_ITS | Clinical Summary ---
Author Organization [facility] Address [address] [place] [address] Phone Care Team Providers Care Lock Setter Name Role Phone MD Stanton Joanna Primary Care Provider [phone] [facility] Unavailable [phone] Reason for Visit and Chief Complaint Post Op Visit/Follow Up Plan of Treatment No Plan of Treatment Recorded Assessments Includes: Assessments from this encounter No Assessments Recorded Medical Equipment - Implanted Devices Includes: Current Devices No Medical Equipment Recorded Medications Administered Includes: Administered Medications from this encounter No Administered Medications Recorded Results Includes: Results discussed during this encounter No Results Recorded For Specified Dates History of Present Illness Includes: History of Present Illness from this encounter No History of Present Illness Recorded Social History No Social History Recorded - Smoking Status Unknown Medical History Includes: Medical History addressed during this encounter No Medical History Recorded Family History Includes: Family History addressed during this encounter No Family History Recorded Review of Systems Includes: Review of Systems from this encounter DIAGNOSIS/ PLAN : Recent right hip hemiarthroplasty excellent progress discharge I have assessed this patient today. I personally saw and examined the patient, reviewed the general history, examination, relevant vitals and medications appropriate to our specialist care. I reviewed any relevant imaging and performed the relevant medical decision making. The major facts and general medical history are as in the previous, recent records which I have reviewed. The patient presents for follow-up now about 2 months out from operative treatment of a displaced intracapsular hip fracture with a hip hemiarthroplasty. Patient attends with family today. Since she is home mobilizing well uses a walker occasionally with having no symptoms. She has a leg is getting progressively stronger and is delighted with the progress. She walks well stands well the wound is healthy. X-rays show excellent position hemiarthroplasty with no issues. This time given excellent progress treatment discharge she understand she may reattend if further issues develop. As fully as possible, I have explained the problem and its management and reviewed the patients / family agenda and all questions relevant to this problem were answered. We discussed the management plan and agreed to proceed as described above. Chaz Keith MD [facility] surgical colleagues [facility] An electronic dictation system was use to complete this note, we apologise for any errors, please contact this office if there are questions. Mental Status Includes: Mental Status from this encounter No Mental Status Recorded Functional Status Includes: Functional Status from this encounter No Functional Status Recorded Physical Exam Includes: Physical Exam from this encounter No Physical Exam Recorded Encounters Encounter Provider Location Date Check-In Time Check-Out Time Diagnosis Post Op Visit/Follow Up Sarwat Keith MD [facility], 10/25/19 24 8:20AM 8:47AM Insurance Includes: Active Insurance Policies Plan Name Member ID Group # Subscriber Relationship Effect venkata Dates 1 - Medicare Part B [facility] [id number] Danitza Mcclain Sr Self Clinical Notes Includes: Clinical Notes from this encounter No Clinical Notes Recorded
--- OUTSIDE RECORDS SUMMARY | 2024-02-15 13:51 | XMS_ITS | Clinical Summary ---
Author Organization [facility] Address [address] [place] [address] Phone Care Team Providers Care Lamp Developer Name Role Phone MD Stanton Joanna Primary Care Provider [phone] [facility] Un[facility] [phone] Reason for Visit and Chief Complaint Post Op Visit/Follow Up Plan of Treatment Pending Tests Order Diagnosis Results Due Ordering P dieudonne Follow Up - Appointment 6 weeks Fracture of unsp part of neck of right femur, init 09/14/23 Vijay Calixto MD Last Documented On 4 8:51AM ; [facility] Assessments Includes: Assessments from this encounter No [...] Social History Recorded - Smoking Status Unknown Procedures and Surgical History Includes: Procedures from this encounter Procedures Code Diagnosis Performing Provider Service Location Service Date X-Ray Exam of Hip unilateral 2-3 views (Professional Comp., Right) 03182 Fracture of unsp part of neck of right femur, nancy Calixto MD [facility] 09/14/2023 Last Documented On 4 2:23PM ; [facility] Ex[facility] of Hip unilateral 2-3 views (Technical Ccomponent, Right) [id number] Fracture of unsp part of neck of right femur, nancy Calixto MD [facility] 09/14/2023 Last Documented On 4 2:23PM ; [facility], Medical History Includes: Medical History addressed during this encounter No Medical History Recorded Family History Includes: Family History addressed during this encounter No Family History Recorded Review of Systems Includes: Review of Systems from this encounter No Review of Systems Recorded Mental Status Includes: Mental Status from this encounter No Mental Status Recorded Functional Status Includes: Functional Status from this encounter No Functional Status Recorded Physical Exam Includes: Physical Exam from this encounter Encounters Encounter Provider Location Date Check-In Time Check-Out Time Diagnosis Post Op Visit/Follow Up Vijay Calixto MD [facility] 09/14/19 8:40AM 8:55AM Insurance Includes: Active Insurance Policies Plan Name Member ID Group # Subscriber Relationship Effect venkata Dates 1 - Medicare Part B of [place] [id number] Danitza Awad Johny Sr Self Clinical Notes Includes: Clinical Notes from this encounter * Progress note Date Encounter Last Documented by 09/14/2023 Post Op Visit/Follow Up Last doc umented on 09/14/2023; 8:51 AM, Vijay Calixto MD; [facility] Physical Findings Chief complaint: Follow-up right hip hemiarthroplasty History of Present Illness: This is a 73-year-old woman who is status post uncemented right hip hemiarthroplasty by Dr. Kay on 09/01/2023. She presents with her daughter. She has no complaints today. Physical exam: The surgical wound is healing nicely without sign of infection. She has minimal discomfort with hip motion. Skin and neurovascular exams are intact to the right lower extremity. Imaging: Radiographs of the right hip taken today are compared to the operative images. There is no evidence for periprosthetic fracture or dislocation. Impression: Status post right hip hemiarthroplasty Plan: The surgical brett are removed. The patient may increase her activity to tolerance within total hip precautions. I reviewed those precautions today. I asked her to return in 6 weeks for reexamination. No radiographs will be necessary unless she is having difficulty. Plan StartCited - Fracture of unsp part of neck of right femur, init Follow Up/Appointment: 6 weeks EndCited
--- OUTSIDE RECORDS SUMMARY | 2024-02-15 13:51 | XMS_ITS ---
Care Plan - [facility] Created on: February 15, 2024 Johny Aldridge, Danitza Awad : 1950 Sex: Female Author Organization [facility] Address [address] [place] [address] Phone Care Team Providers Care Front End Engineer Name Role Phone MD Stanton Joanna Primary Care Provider [phone] [facility] Unavailable [phone]
== END 2024-02-15 13:08 | disposition home or self-care (01) ==
PROVIDERS: PCP Internal Medicine; Visit Provider Internal Medicine
DX: Z00.00 Encounter for general adult medical examination without abnormal findings (principal); E55.9 Vitamin D deficiency, unspecified; E78.5 Hyperlipidemia, unspecified